=== PATIENT | male | born 1965 | race Caucasian/White ===

== ENCOUNTER 2019-08-11 14:56 | Emergency (ER) | payer OTHER ==
[~2019-08-11] VITALS: Ht 182.9 cm; Wt 70.3 kg
[~2019-08-11 14:56] MED LIST: BACTRIM DS TAB1 EAC1 PO; CORTISPORIN EY7.5 ML OP; HYDROCODONE-AP1 EAC6 PO
[2019-08-11 15:05] VITALS: BP 176/100
[2019-08-11] MEDS ORDERED: VALTREX 500 MG500 MG PO (15:20)
[2019-08-11] MEDS ORDERED: NORCO 5-325 TA1 EAC1 PO (15:20)
[2019-08-11] MEDS ORDERED: NEURONTIN300 MG PO (15:20)
== END 2019-08-11 15:37 | disposition home or self-care (01) ==
LOC: M.ERS 14:56
DX: B02.9 Zoster without complications (principal); Z79.899 Other long term (current) drug therapy